=== PATIENT | female | born 1995 | race Caucasian/White ===

== ENCOUNTER 2020-07-06 13:09 | Observation (INO) ==
[2020-07-06] MEDS ORDERED: NORMAL SALINE 1,000 ML IV ONE (13:22)
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
[2020-07-06 13:41] LABS: Hemoglobin 11.8 gm/dL (12.5-16.0); Mean Cell Volume 91.1 fl (78-100); Mean Corpuscular Hemoglobin 30.7 pg (27-31); Mean Corpuscular Hgb Conc 33.7 g/dl (32-36); Mean Platelet Volume 11.4 fl (8-12.5); Platelet Count 159 K/mm3 (150-450); Red Blood Count 3.84 M/mm3 (4.2-5.4); Red Cell Distribution Width 12.1 % (11.5-14.0); White Blood Count 10.2 K/mm3 (4.0-10.5)
[2020-07-06 13:43] LABS: Total Cells Counted 100
[2020-07-06 13:52] LABS: Albumin * 2.6 gm/dl (3.4-5.0); Anion Gap 16.9 mmol/L (6.8-13.8); BUN/Creatinine Ratio 5.1 (9.0-21.6); Bilirubin, Total 0.3 mg/dL (0.0-1.1); Ca. Corrected For Albumin 9.3 mg/dL (8.4-10.2); Calcium * 8.5 mg/dL (7.9-10.9); Carbon Dioxide 21.4 mmol/L (24-32.6); Potassium 3.3 mmol/L (3.4-4.6); Total Protein 6.5 gm/dL (6.2-8.2)
[2020-07-06 13:53] LABS: Lymphocyte 10 % (20-51); Monocyte 5 % (0-9); Neutrophil 85 % (42-75); Neutrophil # 8.7 K/mm3 (1.3-6.0)
[2020-07-06 13:54] LABS: Giant Platelets 2+
[2020-07-06 13:56] LABS: Platelet Estimate Normal (NORMAL); RBC Morphology Normal (NORMAL)
[2020-07-06 14:12] LABS: Urine Bilirubin Negative (NEGATIVE); Urine Blood Negative /ul (NEGATIVE); Urine Ketone Negative (NEGATIVE); Urine Nitrite Negative (NEGATIVE); Urine Protein Negative (NEGATIVE); Urine Specific Gravity 1.015 SP.GR. (1.005-1.010); Urine Urobilinogen Normal (NORMAL)
[2020-07-06 14:30] LABS: Urine Appearance Clear (CLEAR); Urine Bacteria TRACE; Urine Color Yellow; Urine RBC None Seen /hpf (0-5); Urine WBC TRACE /hpf (0-5)
[2020-07-06 17:16] VITALS: BP 102/57
[2020-07-06] MEDS ORDERED: ACETAMINOPHEN 500 MG TABLET PO PRN (17:35)
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
[2020-07-06] MEDS ORDERED: POTASSIUM CHLORIDE 20 MEQ TABLET.SA PO ONE ×2 (17:56→19:40)
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
== END 2020-07-07 08:00 | disposition home or self-care (01) ==
LOC: ER 13:09 → OB 14:42 → OBCLINIC 14:42
PROVIDERS: ADMIT Obstetrics & Gynecology; ATTEND Obstetrics & Gynecology
DX: S30.1XXA Contusion of abdominal wall, initial encounter; E87.6 Hypokalemia; V49.40XA Driver injured in collision with unspecified motor vehicles in traffic accident, initial encounter; Z3A.34 34 weeks gestation of pregnancy; W22.11XA Striking against or struck by driver side automobile airbag, initial encounter; S30.0XXA Contusion of lower back and pelvis, initial encounter